=== PATIENT | male | born 1985 | race Caucasian/White ===

== ENCOUNTER 2017-01-30 07:19 | Emergency (ER) | payer OTHER ==
[~2017-01-30] VITALS: Ht 175.3 cm; Wt 94.0 kg
[2017-01-30] MEDS ORDERED: LIDOCAINE 1%, 20ML ONE (07:49)
[2017-01-30] MEDS ORDERED: MORPHINE SULFATE 4 MG/ML, 1ML ONE ×2 (07:49→11:03)
[2017-01-30] MEDS ORDERED: ONDANSETRON 2MG/ML, 2ML ONE (07:49)
[2017-01-30] MEDS ORDERED: CEFAZOLIN PMX 1GM/50ML 50 ML ONE (07:49)
[2017-01-30] MEDS ORDERED: DIPH,PERTUSS(ACELL),TET VAC/PF 0.5 ML IM-VACC ONE ×2 (07:50→08:00)
[2017-01-30] MEDS ORDERED: CEFAZOLIN PMX 1GM/50ML 50 ML IVPB ONE (08:00)
[2017-01-30] MEDS ORDERED: ONDANSETRON 2MG/ML, 2ML IVPush ONE (08:00)
[2017-01-30] MEDS ORDERED: LIDOCAINE 1%, 20ML INFIL ONE (08:00)
[2017-01-30] MEDS ORDERED: SODIUM CHLORIDE FLUSH 10ML SYR IVF ONE (08:00)
[2017-01-30] MEDS: MORPHINE SULFATE 4 MG/ML, 1ML IVPush PRN ×2 (08:04→11:07)
[2017-01-30] MEDS ORDERED: BUPIVACAINE 0.25% ONE (11:39)
[2017-01-30] MEDS ORDERED: BUPIVACAINE/PF 0.5% INFIL ONE (12:00)
[2017-01-30] MEDS ORDERED: BACITRACIN ZINC OINT 500U/GM, 0.9 GM ONE (12:43)
[2017-01-30 12:52] VITALS: BP 111/59
== END 2017-01-30 12:55 | disposition home or self-care (01) ==
LOC: ED 07:55
DX: S62.632B Displaced fracture of distal phalanx of right middle finger, initial encounter for open fracture (principal); Z89.021 Acquired absence of right finger(s); X58.XXXA Exposure to other specified factors, initial encounter; Y93.89 Activity, other specified; Y92.69 Other specified industrial and construction area as the place of occurrence of the external cause; Y99.8 Other external cause status
CPT/HCPCS: 29130; 73140; 90471; 90715; 96365; 96375; 96376; 99284; J0690; J2405